=== PATIENT | male | born 1985 | race Caucasian/White ===

== ENCOUNTER 2020-12-01 08:57 | Outpatient (REF) | payer OTHER, SELFPAY ==
[2020-12-01 10:10] LABS: Hematocrit 40.9 % (42-52); Hemoglobin 14.2 g/dl (14.0-18.0); Mean Corpuscular HGB Conc 34.7 g/dl (31.0-36.0); Mean Corpuscular Hemoglobin 32.3 pg (27.0-33.0); Mean Corpuscular Volume 93.2 fL (80-98); Mean Platelet Volume 9.8 fL (9.4-12.4); Platelet Count 217 X10*3/uL (160-400); Red Blood Count 4.39 X10*6/uL (4.60-5.80); Red Cell Distribution Width 11.9 % (11.0-16.0); White Blood Count 5.4 X10*3/uL (4.8-10.8)
[2020-12-01 10:28] LABS: Estimated Average Glucose 100 mg/dL; Hemoglobin A1c % 5.1 %
[2020-12-01 10:46] LABS: Alanine Aminotransferase 17 U/L (0-40); Albumin Level 4.5 g/dL (3.5-5.0); Alkaline Phosphatase 39 U/L (39-117); Anion Gap 13 (12-20); Aspartate Amino Transferase 23 U/L (5-37); Bilirubin Total 0.8 mg/dL (0.0-1.0); Blood Urea Nitrogen 14 mg/dL (9-16); Calcium 9.3 mg/dL (8.4-10.2); Carbon Dioxide 28 mmol/L (22-29); Chloride 102 mmol/L (96-108); Cholesterol 157 mg/dL; Estimated Glomerular Filt Rate > 60; Glucose Fasting 90 mg/dL (60-99); HDL Cholesterol 44 mg/dL; LDL Cholesterol Calculated 104 mg/dl; Potassium 4.1 mmol/L (3.3-5.1); Sodium 139 mmol/L (135-145); Total Protein 7.2 g/dL (6.5-8.0); Triglycerides 48 mg/dL
[2020-12-01 11:03] LABS: TSH reflex Free T4 1.78 uIU/mL (0.32-4.0)
== END 2020-12-01 08:58 | disposition home or self-care (01) ==
LOC: HO.10HDL 08:57
PROVIDERS: Visit Provider Physician Assistant
DX: I10 Essential (primary) hypertension (principal); K21.9 Gastro-esophageal reflux disease without esophagitis; Z13.1 Encounter for screening for diabetes mellitus; Z13.220 Encounter for screening for lipoid disorders; Z13.29 Encounter for screening for other suspected endocrine disorder
CPT/HCPCS: 36415; 80053; 80061; 83036; 84443; 85027

== ENCOUNTER → 2020-12-05 14:16 | Outpatient (BNVA) | payer SELFPAY | PROVIDERS: PCP Physician Assistant; Visit Provider Internal Medicine Gastroenterology ==

== ENCOUNTER → 2020-12-07 12:57 | Outpatient (BNVA) | payer OTHER, MEDICAID, SELFPAY | PROVIDERS: PCP Physician Assistant; Visit Provider Internal Medicine Gastroenterology ==

== ENCOUNTER 2020-12-12 08:55 | Outpatient (REF) | payer OTHER, SELFPAY ==
--- NOTE | ~2020-12-12 | US_ITS ---
EXAMINATION: US ABDOMEN COMPLETE CLINICAL INFORMATION: Upper abdominal pain, unspecified. COMPARISON: None TECHNIQUE: Real-time imaging of the abdominal viscera. FINDINGS: PANCREAS: Normal. ABDOMINAL AORTA: The proximal, mid, and distal segments are normal in caliber. INFERIOR VENA CAVA: Visualized portions are normal. LIVER: The liver is normal in size. The liver contour is normal. Parenchymal echogenicity is normal. No focal hepatic lesion. There is no intrahepatic biliary duct dilatation seen. GALLBLADDER: Normal. The gallbladder is physiologically distended without evidence of stones, sludge, polyps, wall thickening or pericholecystic fluid. COMMON BILE DUCT: Normal in caliber measuring 0.5 cm in diameter. RIGHT KIDNEY: Normal. No hydronephrosis. No renal calculi or focal parenchymal lesions. The kidney measures 10.2 cm in maximum dimension. LEFT KIDNEY: 1.3 cm parapelvic cyst. No hydronephrosis or renal calculi. The kidney measures 10.7 cm in maximum dimension. SPLEEN: Normal. The spleen measures 11.0 cm in maximum dimension. FREE FLUID: None. US/US abdomen complete IMPRESSION: No acute findings.
== END 2020-12-12 08:56 | disposition home or self-care (01) ==
LOC: HO.HMGCX 08:55
PROVIDERS: Visit Provider Internal Medicine Gastroenterology
DX: R10.10 Upper abdominal pain, unspecified (principal)
CPT/HCPCS: 76700

== ENCOUNTER 2021-01-11 10:41 | Day surgery (SDC) | payer OTHER, SELFPAY ==
--- NOTE | 2021-01-10 13:04 | HO.ANESPROP2 ---
Documented by User: Lamar Rodriguez 01/10/21 13:08 HPI - Anesthesia Eval Consult details Narrative: 35yo M for Upper Endoscopy and Colonoscopy [facility] Active Problems Active Problems: All Active Problems (Updated 12/05/20 @ 14:41 by Kandice Casillas MD) Upper abdominal pain (Acute) SOPHIA (generalized anxiety disorder) (Acute) GERD (gastroesophageal reflux disease) (Acute) Screening for hypercholesterolemia (Acute) Screening for hypothyroidism (Acute) Screening for diabetes mellitus (DM) (Acute) Family history of gastric carcinoma (Acute) Past Medical History Medical History (Updated 01/10/21 @ 13:05 by Lamar Rodriguez) Family history of gastric carcinoma SOPHIA (generalized anxiety disorder) GERD (gastroesophageal reflux disease) Upper abdominal pain Family History Family History (Updated 12/05/20 @ 14:19 by Shantell Avilez) Father Cancer Mother Spinal stenosis Heart attack Maternal Grandfather Gastric cancer Maternal Aunt Gastric cancer Biallelic mutation of CDH1 gene Maternal Aunt Gastric cancer Biallelic mutation of CDH1 gene Surgical History Surgical History (Updated 01/11/21 @ 13:40 by Taylor Means) History of dental surgery Social History Social History (Updated 01/11/21 @ 13:41 by Taylor Means) Household Members: Spouse, Family and Children Alcohol intake: current Alcohol intake frequency: does not drink Smoking Status: Never smoker Use of substances other than those prescribed or required for medical reasons: Yes Substance Use Type: Marijuana Substance Use Frequency: Daily Last Used Substance: Hours (ago) Last Used Substance Other:: marijuana Advance Directives: Yes Advance Directives on File: Yes Advance Directives Date on File: 01/11/21 Current occupation: early childhood education instructor Meds Allergies Allergy/AdvReac Type Severity Reaction Status Date / Time No Known Allergies Allergy Verified 12/07/20 16:45 Exam Exam Date and Time: January 10, 2021 1304 Pertinent Lab Results Pertinent Lab Results: Laboratory Tests 12/01/20 12/01/20 08:50 08:50 WBC 5.4 Hgb 14.2 Hct 40.9 L Plt Count 217 Sodium 139 Potassium 4.1 Chloride 102 Carbon Dioxide 28 BUN 14 Creatinine 1.10 Narrative Narrative: US abdomen complete 11/2020 IMPRESSION: No acute findings. Assessment and Plan Assessment Anesthesia Assessment: Chart Reviewed Documented by User: Taylor Means 01/11/21 13:43 [facility] Past Medical History Medical History (Updated 01/10/21 @ 13:05 by Lamar Rodriguez) Family history of gastric carcinoma SOPHIA (generalized anxiety disorder) GERD (gastroesophageal reflux disease) Upper abdominal pain Family History Family History (Updated 12/05/20 @ 14:19 by Shantell Avilez) Father Cancer Mother Spinal stenosis Heart attack Maternal Grandfather Gastric cancer Maternal Aunt Gastric cancer Biallelic mutation of CDH1 gene Maternal Aunt Gastric cancer Biallelic mutation of CDH1 gene Family history of problems with anesthesia: No Surgical History Surgical History (Updated 01/11/21 @ 13:40 by Taylor Means) History of dental surgery History of Problems with Anesthesia: No Social History Social History (Updated 01/11/21 @ 13:41 by Taylor Means) Household Members: Spouse, Family and Children Alcohol intake: current Alcohol intake frequency: does not drink Smoking Status: Never smoker Use of substances other than those prescribed or required for medical reasons: Yes Substance Use Type: Marijuana Substance Use Frequency: Daily Last Used Substance: Hours (ago) Last Used Substance Other:: marijuana Advance Directives: Yes Advance Directives on File: Yes Advance Directives Date on File: 01/11/21 Current occupation: early childhood education instructor Meds Allergies Allergy/AdvReac Type Severity Reaction Status Date / Time No Known Allergies Allergy Verified 12/07/20 16:45 Exam Height,Weight and Vital Signs: Vital Signs Temp Pulse Resp BP Pulse Ox 97.6 F 79 18 124/88 100 01/11/21 11:16 01/11/21 11:16 01/11/21 11:16 01/11/21 11:16 01/11/21 11:16 Airway Mallampati Class: II TM Dist: >3cm Neck ROM: Full Heart: RRR Lungs: CTAB Assessment and Plan Assessment Anesthesia Assessment: Anesthesia Plan Discussed and Chart Reviewed Final Anesthetic Review NPO: Yes ASA Class: II Final Preanesthetic Review: No Changes in Pt Med Stat, Meds/Allgs Chart Reviewed, Consent Obtained/Reviewed and Anes Risks/Benef Reviewed Patient Risk: Low Procedure Risk: Low Assessment/Block/Sedation in SS: Assess/Block/Sedation-SS Anesthetic Plan Anesthetic Plan: MAC: Disposition: Standard PACU
[2021-01-11 11:03] VITALS: BMI 26.6
--- NOTE | 2021-01-11 11:07 | P.HPSUR_ITS ---
Pre-Procedural Eval Section B Chief Complaint: abd pain Details of Present Illness: fh gastric cancer Relevant Family History (Specify if Yes): Yes Relevant Social History: Other (specify) (THC use) Present Medications: see Short Stay Collaborative assessment Medical History: Significant History (Family history of gastric carcinoma SOPHIA (generalized anxiety disorder) GERD (gastroesophageal reflux disease) Upper abdominal pain) History of Previous Operations: No relevant previous surgery Allergies: Allergies Allergy/AdvReac Type Severity Reaction Status Date / Time No Known Allergies Allergy Verified 12/07/20 16:45 Review of Systems Sugical H&P ROS: Negative: Constitution, Cardiovascular, Respiratory, Neurological, Psychiatric, Hem-Onc, Allergic/Immunologic, Gastrointestinal, Genitourinary, Musculoskeletal, Integumentary, Endocrine and Eyes/Ears/Nos e/Throat Exam Surgical H&P Exam: Normal: HEENT, Normal: Heart, Normal: Lungs, Normal: Extremities, Normal: Abdomen, Normal: Skin and Normal: Neurological Plan Diagnosis/Plan: Unchanged I have reviewed the history and physical and performed a pertinent physical examination on my patient. No changes have occurred unless specified.
[2021-01-11 11:16] VITALS: BP 124/88; PULSE 79; RESP 18; TEMP 36.4; O2SAT 100
[2021-01-11] MEDS: Lactated Ringers 1,000 ML 100 ML IVCONT (11:35)
--- NOTE | 2021-01-11 11:55 | PM.OP ---
Brief Operative Note Date of Service: 01/11/21 Pre-op diagnosis: abdo pain and hx of gastric ca Post-op diagnosis: same Procedure: see op note Surgeon: Kandice Casillas MD Anesthesia: MAC Estimated blood loss (mL): 0 Condition: stable Disposition: PACU
--- NOTE | 2021-01-11 11:55 | W.PM.OPN ---
Operative Note Operative Note Date of Service: 01/11/21 Narrative: Operative Information Procedure Description: EGD, Colonoscopy FLEXIBLE TRANSORAL UPPER GASTROINTESTINAL ENDOSCOPY AND COLONOSCOPY PROCEDURE NOTE UPPER ENDOSCOPY Consent: Indications for the procedure and potential complications of bleeding, perforation, reaction to medications and missed diagnosis were discussed with the patient and informed consent was obtained. Instrument: Olympus GIF H 190 J mid size upper endoscope Monitoring: Vital signs and clinical assessment, continuous EKG monitoring, Pulse oximetry, Carbon Dioxide monitoring and blood pressure monitoring were done throughout the procedure. Procedure: The patient was placed in the left lateral decubitis position and pre-procedure medications were administered and a bite block was placed. The endoscope was inserted into the mouth and advanced under direct vision to the third part of duodenum. A careful inspection was made as the upper endoscope was withdrawn including a retroflexed examination of the proximal stomach; Findings and interventions are described below. Findings: Larynx:normal Esophagus: GE junction at 39 cm, diaphragm hiatus at 41 cm, 2 cm sliding hiatal hernia noted, possible short segment barretts, WATS 3D brushings and biopsies taken Stomach: Normal mucosa. Biopsies were obtained from antrum, pre pylorus, angularis, cardia, fundus and stomach body in different jars. Grade 2 flap valve on retroflexed examination of the cardia. Duodenum: Normal bulb and descending duodenum, bx taken Intervention: Biopsies as noted above, brushings COLONOSCOPY Instrument: Olympus variable stiffness pediatric scope 190L Colonoscopy Monitoring: Vital signs and clinical assessment, continuous EKG monitoring, Pulse oximetry, Carbon Dioxide monitoring and blood pressure monitoring were done throughout the procedure. Colon withdrawal time was 9 minutes. Procedure: The patient was placed in the left lateral decubitis position and pre-procedure medications were administered. After a digital rectal examination of the ano-rectum, the video colonoscope was inserted into the rectum and advanced through the colon to the cecum/TI. The colonoscope was slowly withdrawn in a retrograde panoramic fashion and the colon mucosa was carefully examined including a retroflexed view of the rectum. Findings and interventions are described below. Procedure Difficulty: easy Findings: Terminal Ileum-mild erythema and matted appearance bx taken Cecum:normal, one small diverticulum seen Ascending Colon: normal, one small diverticulum seen Transverse Colon -normal Descending Colon:normal Sigmoid Colon: normal Rectum: Retroflexion with small internal hemorrhoids, grade I Anorectum - normal Colon preparation: [place] Bowel Preparation Scale Right colon; 3 Transverse colon: 3 Left colon; 3 (0 = Unprepared colon segment with mucosa not seen due to solid stool that cannot be cleared. 1 = Portion of mucosa of the colon segment seen, but other areas of the colon segment not well seen due to staining, residual stool and/or opaque liquid. 2 = Minor amount of residual staining, small fragments of stool and/or opaque liquid, but mucosa of colon segment seen well. 3 = Entire mucosa of colon segment seen well with no residual staining, small fragments of stool or opaque liquid) Impression and Post Procedure Diagnosis: Endoscopy Findings: hiatal hernia possible barretts Colonoscopy Findings: internal hemorrhoids Plan: Await Pathology results Repeat Colonoscopy in 5 years due to genetic variant of unknown significance or earlier if clinically indicated Repeat EGD in 1-2 yrs due to genetic variant or earlier if concerns High fiber diet leaflet avoid straining at stool, epsom salts and sitz bath, anusol supps or cream as needed Above findings were reviewed with the patient and relevant handouts were provided if indicated.
[2021-01-11 13:06] VITALS: BP 109/51; PULSE 55; RESP 16; TEMP 36.6; O2SAT 99
[2021-01-11 13:21] VITALS: BP 109/51; PULSE 58; RESP 16; TEMP 37.1; O2SAT 99
== END 2021-01-11 14:04 | disposition home or self-care (01) ==
PROVIDERS: PCP Physician Assistant; Visit Provider Internal Medicine Gastroenterology
PROC: (CPT 45380; principal; 2021-01-11 12:00)
DX: R10.10 Upper abdominal pain, unspecified (principal); K57.30 Diverticulosis of large intestine without perforation or abscess without bleeding; K64.0 First degree hemorrhoids; K21.9 Gastro-esophageal reflux disease without esophagitis; K22.70 Barrett's esophagus without dysplasia; K44.9 Diaphragmatic hernia without obstruction or gangrene; Z80.0 Family history of malignant neoplasm of digestive organs; F12.90 Cannabis use, unspecified, uncomplicated; F41.1 Generalized anxiety disorder
CPT/HCPCS: 45380; 43239; 88305; 88342

== ENCOUNTER → 2021-01-29 10:57 | Outpatient (BNVA) | payer OTHER, SELFPAY | PROVIDERS: PCP Physician Assistant; Visit Provider Internal Medicine Gastroenterology ==

== ENCOUNTER 2022-02-09 07:16 | Outpatient (REF) | payer OTHER, SELFPAY ==
[2022-02-09 08:02] LABS: Hematocrit 42.7 % (42.0-52.0); Hemoglobin 14.2 g/dl (14.0-18.0); Mean Corpuscular HGB Conc 33.3 g/dl (31.0-36.0); Mean Corpuscular Hemoglobin 32.1 pg (27.0-33.0); Mean Corpuscular Volume 96.6 fL (80.0-98.0); Mean Platelet Volume 9.2 fL (9.4-12.4); Platelet Count 219 X10*3/uL (160-400); Red Blood Count 4.42 X10*6/uL (4.60-5.80); Red Cell Distribution Width 12.6 % (11.0-16.0); White Blood Count 5.3 X10*3/uL (4.8-10.8)
[2022-02-09 08:10] LABS: Estimated Average Glucose 97 mg/dL
[2022-02-09 08:17] LABS: Alanine Aminotransferase 34 U/L (0-40); Albumin Level 4.2 g/dL (3.5-5.0); Alkaline Phosphatase 37 U/L (39-117); Anion Gap 10 (12-20); Aspartate Amino Transferase 44 U/L (5-37); Bilirubin Total 0.7 mg/dL (0.0-1.0); Blood Urea Nitrogen 21 mg/dL (9-16); Calcium 9.6 mg/dL (8.4-10.2); Carbon Dioxide 26 mmol/L (22-29); Chloride 106 mmol/L (96-108); Cholesterol 141 mg/dL; Estimated Glomerular Filt Rate > 60; Glucose Fasting 92 mg/dL (60-99); HDL Cholesterol 48 mg/dL; LDL Cholesterol Calculated 86 mg/dl; Magnesium 1.8 mg/dL (1.6-2.6); Potassium 4.4 mmol/L (3.3-5.1); Sodium 138 mmol/L (135-145); Total Protein 6.9 g/dL (6.5-8.0); Triglycerides 37 mg/dL
[2022-02-09 08:52] LABS: TSH reflex Free T4 2.94 uIU/mL (0.32-4.0)
[2022-02-09 10:14] LABS: Vitamin D 25-OH Total 31.3 ng/mL (>30)
[2022-02-11 08:38] LABS: Folate 12.7 ng/mL (> or = 4.0); Vitamin B12 896 pg/mL (200-900)
== END 2022-02-09 07:17 | disposition home or self-care (01) ==
LOC: HO.LAB 07:16
PROVIDERS: PCP Physician Assistant; Visit Provider Physician Assistant
DX: Z13.29 Encounter for screening for other suspected endocrine disorder (principal); Z13.220 Encounter for screening for lipoid disorders; R00.2 Palpitations; E53.8 Deficiency of other specified B group vitamins
CPT/HCPCS: 36415; 80053; 80061; 82306; 82607; 82746; 83036; 83735; 84443; 85027